=== PATIENT | male | born 1965 | race Caucasian/White ===

== ENCOUNTER 2017-04-17 18:41 | Inpatient (IN) | payer OTHER ==
[~2017-04-17] VITALS: Ht 177.8 cm; Wt 100.0 kg
[~2017-04-17 18:41] MED LIST: ASPI81TA82 PO; LORA-392 PO; MAGN400T PO; Z.0.NO CURRENT MEDS
[2017-04-17 19:26] VITALS: BP 132/82; PULSE 143; RESP 24; TEMP 100.5; O2SAT 96
[2017-04-17 20:36] LABS: AUTOMATED NEUTROPHIL # 4.5 TH/MM3 (1.8-7.7); BASOPHIL % 0.3 % (0.0-2.0); EOSINOPHIL % 0.1 % (0.0-4.0); HEMATOCRIT 47.4 % (39.0-51.0); HEMOGLOBIN 16.7 GM/DL (13.0-17.0); LYMPH % 10.4 % (9.0-44.0); LYMPHOCYTE # 0.7 TH/MM3 (1.0-4.8); MEAN CORPUSCULAR HEMOGLOBIN 30.6 PG (27.0-34.0); MEAN CORPUSCULAR HGB CONC 35.2 % (32.0-36.0); MEAN PLATELET VOLUME 7.7 FL (7.0-11.0); MONO % 18.9 % (0.0-8.0); MONOCYTE # 1.2 TH/MM3 (0-0.9); NEUT % 70.3 % (16.0-70.0); PLATELET COUNT 266 TH/MM3 (150-450); RED BLOOD COUNT 5.45 MIL/MM3 (4.50-5.90); RED CELL DISTRIBUTION WIDTH 13.7 % (11.6-17.2); WHITE BLOOD COUNT 6.3 TH/MM3 (4.0-11.0)
--- NOTE | 2017-04-17 20:41 | RADRPT ---
EXAM DATE/TIME: 04/17/2017 19:48 [facility] COMPARISON: No previous studies available for comparison. INDICATIONS : Short of breath. MEDICAL HISTORY : None. SURGICAL HISTORY : None. ENCOUNTER: Initial ACUITY: 1 day PAIN SCORE: 0/10 LOCATION: Bilateral chest FINDINGS: PA and lateral view of the chest demonstrates a linear opacity in the anterior right midlung suggesti ng either atelectasis or a discoid infiltrate. There is also some patchy infiltrate seen in the post erior left lower lung. Both hemidiaphragms are well delineated heart is normal size. The central br onchopulmonary markings level. CONCLUSION: Focal infiltrates in the anterior right midlung and posterior left lower lung. Panfilo Diaz MD on April 17, 2017 at 20:39 Board Certified Radiologist. This report was verified electronically.
[2017-04-17 20:54] LABS: INTERNATIONAL NORMALIZED RATIO 1.2 RATIO; PROTHROMBIN TIME - PATIENT 11.8 SEC (9.8-11.6)
[2017-04-17 21:09] LABS: ALBUMIN 3.8 GM/DL (3.4-5.0); AST (GOT) 26 U/L (15-37); BICARBONATE 27.6 MEQ/L (21.0-32.0); BLOOD UREA NITROGEN 16 MG/DL (7-18); CHLORIDE 99 MEQ/L (98-107); CREATININE 1.64 MG/DL (0.60-1.30); GLOMERULAR FILTRATION RATE 45 ML/MIN (>89); GLUCOSE,RANDOM 122 MG/DL (74-106); SODIUM (NA) 135 MEQ/L (136-145)
[2017-04-17 21:10] LABS: ALT (GPT) 28 U/L (12-78)
[2017-04-17 21:14] LABS: ALKALINE PHOSPHATASE 73 U/L (45-117); TOTAL BILIRUBIN ADULT 0.7 MG/DL (0.2-1.0); TOTAL PROTEIN 8.6 GM/DL (6.4-8.2); TROPONIN I LESS THAN 0.02 NG/ML (0.02-0.05)
[2017-04-17 21:40] LABS: BACTERIA, URINE FEW /hpf; BILIRUBIN, URINE NEG (NEG); BLOOD, URINE LARGE (NEG); GLUCOSE,URINE NEG (NEG); KETONE, URINE NEG (NEG); MUCUS URINE MANY /lpf (OCC); NITRITE,URINE NEG (NEG); URINE LEUKOCYTE ESTERASE NEG (NEG)
[2017-04-17 21:47] LABS: URINE COLOR RED (YELLW/STRAW)
[2017-04-17] MEDS ORDERED: AZITHROMYCIN INJ 500 MG in SODIUM CHLOR 0.9% 250 ML INJ 250 ML IV ONE (23:30)
[2017-04-17] MEDS ORDERED: cefTRIAXone INJ 1,000 MG in SODIUM CHLORIDE 0.9% INJ 100 ML IV ONE (23:30)
[2017-04-17] MEDS ORDERED: OSELTAMIVIR PHOSPHATE 75 MG CAP PO ONE (23:30)
[2017-04-17] MEDS ORDERED: SODIUM CHLOR 0.9% 1000 ML INJ 1,000 ML IV ONE (23:30)
[2017-04-17 23:34] VITALS: BP 123/80; PULSE 120; RESP 18; TEMP 99.3; O2SAT 99
--- NOTE | 2017-04-17 23:45 | PD ---
HPI Chief Complaint: Cold / Flu Symptoms Time Seen by Provider: 23:22 Travel History International Travel<30 days: No Contact w/Intl Traveler<30days: No Traveled to known affect area: No History of Present Illness HPI 52-year-old male with no significant past medical history of for evaluation of fever, chills, cough, flulike symptoms. Symptoms have been going on for last 2 days and seems to be worse today. He is complaining of generalized weakness and generalized malaise as well. No vomiting or diarrhea. No abdominal pain. Workup was performed in triage and the patient is positive for influenza A with bilateral pulmonary infiltrates. PFSH Past Medical History Atrial Fibrillation: Yes Kidney Stones: Yes Immunizations Current: No Past Surgical History Abdominal Surgery: Yes (MARY., ) Cardiac Surgery: Yes (ABLATION 2011) Cholecystectomy: Yes Genitourinary Surgery: Yes ([facility]) Other Surgery: Yes Social History Alcohol Use: No Tobacco Use: No Substance Use: No Allergies-Medications (Allergen,Severity, Reaction): Coded Allergies: No Known Allergies (Verified Adverse Reaction, Unknown, 04/17/17) Reported Meds & Prescriptions Reported Meds & Active Scripts Active No Active Prescriptions or Reported Medications Review of Systems Except as stated in HPI: all other systems reviewed are Neg Physical Exam Narrative GENERAL: Pleasant, well-developed, well-nourished, no apparent distress. SKIN: Focused skin assessment warm/dry. No rash. HEAD: Atraumatic. Normocephalic. EYES: Pupils equal and round. No scleral icterus. No injection or drainage. ENT: Mucous membranes pink and dry. NECK: Trachea midline. No JVD. No nuchal rigidity. CARDIOVASCULAR: Regular rate and rhythm. No murmur appreciated. RESPIRATORY: No accessory muscle use. Clear to auscultation. Breath sounds equal bilaterally. GASTROINTESTINAL: Abdomen soft, non-tender, nondistended. MUSCULOSKELETAL: No obvious deformities. No clubbing. No cyanosis. No edema. NEUROLOGICAL: Awake and alert. No obvious cranial nerve deficits. Motor grossly within normal limits. Normal speech. PSYCHIATRIC: Appropriate mood and affect; insight and judgment normal. Data Data Last Documented VS Vital Signs Date Time Temp Pulse Resp B/P (MAP) Pulse Ox O2 Delivery O2 Flow Rate FiO2 04/17/17 23:34 99.3 120 18 123/80 (94) 99 Room Air Orders Orders Electrocardiogram (04/17/17:) Complete Blood Count With Diff (04/17/17 19:28) Comprehensive Metabolic Panel (04/17/17:) Prothrombin Time / Inr (Pt) (04/17/17:) Act Partial Throm Time (Ptt) (04/17/17:) Lactic Acid Sepsis Protocol (04/17/17 19:28) Lipase (04/17/17 19:28) Ckmb (Isoenzyme) Profile (04/17/17:) Troponin I (04/17/17:) Urinalysis - C+S If Indicated (04/17/17:) Influenzae A/B Antigen (04/17/17:) Blood Culture (04/17/17:) Chest, Pa & Lat (04/17/17 19:28) CKMB (04/17/17 20:10) CKMB% (04/17/17 20:10) Urine Culture (04/17/17 20:19) Oseltamivir (Tamiflu) (04/17/17 23:30) Ceftriaxone Inj (Rocephin Inj) (04/17/17 23:30) Azithromycin Inj (Zithromax Inj) (04/17/17 23:30) Sodium Chlor 0.9% 1000 Ml Inj (Ns 1000 M (04/17/17 23:30) Labs Laboratory Tests Test 04/17/17 20:10 04/17/17 20:19 White Blood Count 6.3 TH/MM3 Red Blood Count 5.45 MIL/MM3 Hemoglobin 16.7 GM/DL Hematocrit 47.4 % Mean Corpuscular Volume 87.0 FL Mean Corpuscular Hemoglobin 30.6 PG Mean Corpuscular Hemoglobin Concent 35.2 % Red Cell Distribution Width 13.7 % Platelet Count 266 TH/MM3 Mean Platelet Volume 7.7 FL Neutrophils (%) (Auto) 70.3 % Lymphocytes (%) (Auto) 10.4 % Monocytes (%) (Auto) 18.9 % Eosinophils (%) (Auto) 0.1 % Basophils (%) (Auto) 0.3 % Neutrophils # (Auto) 4.5 TH/MM3 Lymphocytes # (Auto) 0.7 TH/MM3 Monocytes # (Auto) 1.2 TH/MM3 Eosinophils # (Auto) 0.0 TH/MM3 Basophils # (Auto) 0.0 TH/MM3 CBC Comment DIFF FINAL Differential Comment Prothrombin Time 11.8 SEC Prothromb Time International Ratio 1.2 RATIO Activated Partial Thromboplast Time 30.1 SEC Blood Urea Nitrogen 16 MG/DL Creatinine 1.64 MG/DL Random Glucose 122 MG/DL Total Protein 8.6 GM/DL Albumin 3.8 GM/DL Calcium Level 9.0 MG/DL Alkaline Phosphatase 73 U/L Aspartate Amino Transf (AST/SGOT) 26 U/L Alanine Aminotransferase (ALT/SGPT) 28 U/L Total Bilirubin 0.7 MG/DL Sodium Level 135 MEQ/L Potassium Level 3.9 MEQ/L Chloride Level 99 MEQ/L Carbon Dioxide Level 27.6 MEQ/L Anion Gap 8 MEQ/L Estimat Glomerular Filtration Rate 45 ML/MIN Lactic Acid Level 1.3 mmol/L Total Creatine Kinase 119 U/L Creatine Kinase MB LESS THAN 0.5 NG/ML Troponin I LESS THAN 0.02 NG/ML Lipase 84 U/L Urine Color RED Urine Turbidity CLOUDY Urine pH 6.0 Urine Specific [place] 1.023 Urine Protein 100 mg/dL Urine Glucose (UA) NEG mg/dL Urine Ketones NEG mg/dL Urine Occult Blood LARGE Urine Nitrite NEG Urine Bilirubin NEG Urine Urobilinogen LESS THAN 2.0 MG/DL Urine Leukocyte Esterase NEG Urine RBC 13 /hpf Urine WBC 9 /hpf Urine Bacteria FEW /hpf Urine Mucus MANY /lpf Microscopic Urinalysis Comment CULTURE INDICATED MDM Medical Decision Making Medical Screen Exam Complete: Yes Emergency Medical Condition: Yes Differential Diagnosis Sepsis, pneumonia, influenza Narrative Course Initial vital signs show heart rate 143, blood pressure 132/82, pulse ox 96% on room air, oral temp of 100.5F. CBC: WBC 6.3, hemoglobin 16.7, hematocrit 47.4, platelets 266, neutrophils 70%. CMP is remarkable for creatinine 1.64, GFR 45, otherwise unremarkable. Lactic acid is 1.3. UA is suggestive of UTI. Influenza is positive. Chest x-ray shows bilateral infiltrates. The patient is not in any distress, however he does have flu a and pneumonia. He will be admitted for further treatment and evaluation. He was started on Tamiflu, Rocephin, and azithromycin. He was also given 2 L of normal saline IV for sepsis. Case discussed with hospitalist Dr. Ludwig who will admit the patient to her service. Diagnosis Primary Impression: Sepsis Qualified Codes: A41.9 - Sepsis, unspecified organism Additional Impressions: Influenza A Pneumonia Qualified Codes: J18.9 - Pneumonia, unspecified organism Admitting Information Admitting Physician Requests: Admit Scripts No Active Prescriptions or Reported Jason Berry MD Apr 17, 2017 23:45
[2017-04-18] VITALS (8 sets, daily range): BP systolic 108–142; BP diastolic 62–89; PULSE 99–106; RESP 14–20; TEMP 98.5–99.1; O2SAT 92–99
[2017-04-18] MEDS ORDERED: ACETAMINOPHEN 325 MG TAB PO ONE
[2017-04-18] MEDS ORDERED: SODIUM CHLOR 0.9% 1000 ML INJ 1,000 ML IV ONE
[2017-04-18] MEDS ORDERED: guaiFENesin/DEXTROMETHORPHAN 200 MG/20 MG/10 ML CUP PO PRN (00:45)
[2017-04-18] MEDS ORDERED: ONDANSETRON HCL 4 MG/2 ML VIAL IV PUSH PRN (00:45)
[2017-04-18] MEDS ORDERED: SODIUM CHLORIDE 0.9% FLUSH 10 ML FLUSH IV FLUSH PRN (00:45)
[2017-04-18] MEDS ORDERED: ACETAMINOPHEN 325 MG TAB PO PRN (00:45)
[2017-04-18] MEDS ORDERED: RESP: ALBUTEROL 2.5 MG/IPRATROPIUM 0.5 MG NEB (PRN) INH (00:45)
[2017-04-18] MEDS: SODIUM CHLOR 0.9% 1000 ML INJ 1,000 ML IV SCH ×3 (01:35→22:34)
[2017-04-18] MEDS: HEPARIN SODIUM - SQ 10,000 UNITS/ML VIAL SQ SCH ×3 (02:00→18:00)
[2017-04-18] MEDS: RESP: ALBUTEROL 2.5 MG/IPRATROPIUM 0.5 MG NEB (SCH) INH ×4 (03:34→21:00)
--- NOTE | 2017-04-18 03:40 | HHI.HP ---
HPI Service [facility] Primary Care Physician [facility] Admission Diagnosis sepsis, influenza, pneumonia Diagnoses: Travel History International Travel<30 Days: No Contact w/Intl Traveler <30 Da: No Traveled to Known Affected Are: No History of Present Illness 52-year-old male with no significant past medical history presents to the emergency department for the evaluation of fever and body aches. The patient reports that for the past 2-3 days he has had subjective fever/chills and corresponding body aches with weakness. He endorses accompanying nausea and shortness of breath. He has a nonproductive cough. He states he usually " rides these things out" however was feeling so weak today that he presented in the emergency department for further evaluation. He denies chest pain or shortness of breath. No vomiting or diarrhea. Review of Systems Except as stated in HPI: all other systems reviewed are Neg Past Family Social History Past Medical History History of renal calculi Past Surgical History Ablation for atrial fibrillation Cholecystectomy Lithotripsy Reported Medications Reported Meds & Active Scripts Active No Active Prescriptions or Reported Medications Allergies: Coded Allergies: No Known Allergies (Verified Allergy, Unknown, 04/18/17) Family History Father with CAD Social History Denies alcohol, tobacco and illicit drugs Physical Exam Vital Signs Vital Signs Date Time Temp Pulse Resp B/P (MAP) Pulse Ox O2 Delivery O2 Flow Rate FiO2 04/18/17 02:31 106 18 108/62 (77) 96 Room Air 04/17/17 23:34 99.3 120 18 123/80 (94) 99 Room Air 04/17/17 19:26 100.5 143 24 132/82 (99) 96 Physical Exam GENERAL: male lying in bed SKIN: No rashes, ecchymoses or lesions. Cool and dry. HEAD: Atraumatic. Normocephalic. No temporal or scalp tenderness. EYES: Pupils equal round and reactive. Extraocular motions intact. No scleral icterus. No injection or drainage. ENT: Nose without bleeding, purulent drainage or septal hematoma. Throat without erythema, tonsillar hypertrophy or exudate. Uvula midline. Airway patent. NECK: Trachea midline. No JVD or lymphadenopathy. Supple, nontender, no meningeal signs. CARDIOVASCULAR: Regular rate and rhythm without murmurs, gallops, or rubs. RESPIRATORY: Clear to auscultation. Breath sounds equal bilaterally. No wheezes , rales, or rhonchi. GASTROINTESTINAL: Abdomen soft, non-tender, nondistended. No hepato-splenomegaly , or palpable masses. No guarding. MUSCULOSKELETAL: Extremities without clubbing, cyanosis, or edema. No joint tenderness, effusion, or edema noted. No calf tenderness. NEUROLOGICAL: Awake and alert. Cranial nerves II through XII intact. Motor and sensory grossly within normal limits. Normal speech. Laboratory Laboratory Tests Test 04/17/17 20:10 04/17/17 20:19 White Blood Count 6.3 Red Blood Count 5.45 Hemoglobin 16.7 Hematocrit 47.4 Mean Corpuscular Volume 87.0 Mean Corpuscular Hemoglobin 30.6 Mean Corpuscular Hemoglobin Concent 35.2 Red Cell Distribution Width 13.7 Platelet Count 266 Mean Platelet Volume 7.7 Neutrophils (%) (Auto) 70.3 Lymphocytes (%) (Auto) 10.4 Monocytes (%) (Auto) 18.9 Eosinophils (%) (Auto) 0.1 Basophils (%) (Auto) 0.3 Neutrophils # (Auto) 4.5 Lymphocytes # (Auto) 0.7 Monocytes # (Auto) 1.2 Eosinophils # (Auto) 0.0 Basophils # (Auto) 0.0 CBC Comment DIFF FINAL Differential Comment Prothrombin Time 11.8 Prothromb Time International Ratio 1.2 Activated Partial Thromboplast Time 30.1 Blood Urea Nitrogen 16 Creatinine 1.64 Random Glucose 122 Total Protein 8.6 Albumin 3.8 Calcium Level 9.0 Alkaline Phosphatase 73 Aspartate Amino Transf (AST/SGOT) 26 Alanine Aminotransferase (ALT/SGPT) 28 Total Bilirubin 0.7 Sodium Level 135 Potassium Level 3.9 Chloride Level 99 Carbon Dioxide Level 27.6 Anion Gap 8 Estimat Glomerular Filtration Rate 45 Lactic Acid Level 1.3 Total Creatine Kinase 119 Creatine Kinase MB LESS THAN 0.5 Troponin I LESS THAN 0.02 Lipase 84 Urine Color RED Urine Turbidity CLOUDY Urine pH 6.0 Urine Specific [place] 1.023 Urine Protein 100 Urine Glucose (UA) NEG Urine Ketones NEG Urine Occult Blood LARGE Urine Nitrite NEG Urine Bilirubin NEG Urine Urobilinogen LESS THAN 2.0 Urine Leukocyte Esterase NEG Urine RBC 13 Urine WBC 9 Urine Bacteria FEW Urine Mucus MANY Microscopic Urinalysis Comment CULTURE INDICATED Date/Time Source Procedure Growth Status 04/17/17 20:10 Blood Peripheral Aerobic Blood Culture Pending Received 04/17/17 20:10 Blood Peripheral Anaerobic Blood Culture Pending Received 04/17/17 20:10 Nasal Washing Influenza Types A,B Antigen (SARAH BETH) - Final Positive For Flu A Antigen Complete 04/17/17 20:19 Urine Clean Catch Urine Culture Pending Received Result Diagram: 04/17/17200904/17/172009 Caprini VTE Risk Assessment Caprini VTE Risk Assessment: No/Low Risk (score <= 1) Caprini Risk Assessment Model Point Value = 1 Point Value = 2 Point Value = 3 Point Value = 5 Age 41-60 Minor surgery BMI > 25 kg/m2 Swollen legs Varicose veins or History of unexplained or recurrent spontaneous Oral contraceptives or hormone replacement Sepsis (< 1 month) Serious lung disease, including pneumonia (< 1 month) Abnormal pulmonary function Acute myocardial infarction Congestive heart failure (< 1 month) History of inflammatory bowel disease Medical patient at bed rest Age 61-74 Arthroscopic surgery Major open surgery (> 45 min) Laparoscopic surgery (> 45 min) Malignancy Confined to bed (> 72 hours) Immobilizing plaster cast Central venous access Age >= 75 History of VTE Family history of VTE Factor V Leiden Prothrombin [id number] Lupus anticoagulant Anticardiolipin antibodies Elevated serum homocysteine Heparin-induced thrombocytopenia Other congenital or acquired thrombophilia Stroke (< 1 month) Elective arthroplasty Hip, pelvis, or leg fracture Acute spinal cord injury (< 1 month) Prophylaxis Regimen Total Risk Factor Score Risk Level Prophylaxis Regimen 0-1 Low Early ambulation 2 Moderate Order ONE of the following: *Sequential Compression Device (SCD) *Heparin 5000 units SQ BID 3-4 Higher Order ONE of the following medications: *Heparin 5000 units SQ TID *Enoxaparin/Lovenox 40 mg SQ daily (WT < 150 kg, CrCl > 30 mL/min) *Enoxaparin/Lovenox 30 mg SQ daily (WT < 150 kg, CrCl > 10-29 mL/min) *Enoxaparin/Lovenox 30 mg SQ BID (WT < 150 kg, CrCl > 30 mL/min) AND/OR *Sequential Compression Device (SCD) 5 or more Highest Order ONE of the following medications: *Heparin 5000 units SQ TID (Preferred with Epidurals) *Enoxaparin/Lovenox 40 mg SQ daily (WT < 150 kg, CrCl > 30 mL/min) *Enoxaparin/Lovenox 30 mg SQ daily (WT < 150 kg, CrCl > 10-29 mL/min) *Enoxaparin/Lovenox 30 mg SQ BID (WT < 150 kg, CrCl > 30 mL/min) AND *Sequential Compression Device (SCD) Assessment and Plan Assessment and Plan Assessment/plan: 1. Pneumonia/sepsis Patient tachycardic with fever Chest x-ray significant for bilateral infiltrates, personally reviewed Azithromycin/Rocephin Monitor for signs of shock 2. Influenza Patient positive for influenza A Tamiflu 3. KAVITA Creatinine elevated at 1.64, no recent baseline for comparison IV fluid hydration Monitor renal function UA with large occult blood Patient with history of kidney stones CT of the abdomen/pelvis pending FEN Heart healthy diet Electrolytes: Replete when necessary Ambulation Physician Certification 2 Midnight Certification Type: Admission for Inpatient Services Order for Inpatient Services The services are ordered in accordance with Medicare regulations or non- Medicare payer requirements, as applicable. In the case of services not specified as inpatient-only, they are appropriately provided as inpatient services in accordance with the 2-midnight benchmark. Estimated LOS (days): 2 2 days is the estimated time the patient will need to remain in the hospital, assuming treatment plan goals are met and no additional complications. Post-Hospital Plan: Not yet determined Gientte Ludwig MD Apr 18, 2017 03:40
--- NOTE | 2017-04-18 05:12 | RADRPT ---
EXAM DATE/TIME: 04/18/2017 04:13 [facility] COMPARISON: No previous studies available for comparison. INDICATIONS : Bilateral flank pain. ORAL CONTRAST: No oral contrast ingested. RADIATION DOSE: 26.17 CTDIvol (mGy) MEDICAL HISTORY : Renal calculi. SURGICAL HISTORY : Cholecystectomy. ENCOUNTER: Initial ACUITY: 1 day PAIN SCALE: 5/10 LOCATION: Bilateral flank TECHNIQUE: Volumetric scanning of the abdomen and pelvis was performed. Using automated exposure control and ad justment of the mA and/or kV according to patient size, radiation dose was kept as low as reasonably achievable to obtain optimal diagnostic quality images. DICOM format image data is available electro nically for review and comparison. FINDINGS: LOWER LUNGS: The visualized lower lungs are clear. LIVER: Homogeneous density without lesion. There is no dilation of the biliary tree. There has been prior cholecystectomy clips in the gallbladder fossa and a clip adjacent to the right lobe of the liver. SPLEEN: Normal size without lesion. PANCREAS: Within normal limits. KIDNEYS: Normal in size and shape. There is no stone or hydronephrosis. There is an exophytic isodense lesion at the right upper pole kidney measuring 12 mm. Hounsfield measurements are 38. There is a 9 mm low- density lesion in the right mid kidney and a 2.6 cm low-density lesion at the left lower pole kidney. He said density measurements consistent with simple cysts. ADRENAL GLANDS: Within normal limits. VASCULAR: There is no aortic aneurysm. BOWEL/MESENTERY: The stomach, small bowel, and colon demonstrate no acute abnormality. There is no free intraperitone al air or fluid. ABDOMINAL WALL: Within normal limits. RETROPERITONEUM: There is no lymphadenopathy. BLADDER: No wall thickening or mass. REPRODUCTIVE: Within normal limits. INGUINAL: There is no lymphadenopathy or hernia. MUSCULOSKELETAL: There are mild degenerative changes of the lumbar spine with pars defects of L5. CONCLUSION: 1. No acute finding is identified to explain the bilateral flank pain. No renal stones or signs of ur inary obstruction are present. 2. There is an 12 mm indeterminate lesion at the upper pole of the right kidney medially. This could represent a complex cyst or a solid mass. If no prior imaging studies are available for further evalu ation suggest further characterization with renal protocol CT or MRI with and without intravenous con trast. Sandro Jovel MD on April 18, 2017 at 5:05 Board Certified Radiologist. This report was verified electronically.
[2017-04-18] MEDS ORDERED: OSELTAMIVIR PHOSPHATE 75 MG CAP PO SCH (09:00)
[2017-04-18] MEDS: OSELTAMIVIR PHOSPHATE 75 MG CAP PO SCH ×2 (09:35→22:33)
[2017-04-18] MEDS: SODIUM CHLORIDE 0.9% FLUSH 10 ML FLUSH IV FLUSH SCH ×2 (09:35→21:00)
--- NOTE | 2017-04-18 13:47 | EKG ---
Date Performed: 04/17/2017 Time Performed: 20:09:06 PTAGE: 52 years EKG: SINUS TACHYCARDIA PREVIOUS TRACING : 05/25/2012 06.44 DOCTOR: Moises Fernández Interpretating Date/Time 04/18/2017 13:46:29
[2017-04-19] VITALS: BP 126/79; PULSE 97; RESP 17; TEMP 98.8; O2SAT 95
[2017-04-19] MEDS ORDERED: cefTRIAXone INJ 1,000 MG in SODIUM CHLORIDE 0.9% INJ 100 ML IV SCH ×2
[2017-04-19] MEDS ORDERED: AZITHROMYCIN INJ 500 MG in SODIUM CHLOR 0.9% 250 ML INJ 250 ML IV SCH (01:00)
[2017-04-19] MEDS: HEPARIN SODIUM - SQ 10,000 UNITS/ML VIAL SQ SCH ×2 (01:19→10:00)
[2017-04-19] MEDS: RESP: ALBUTEROL 2.5 MG/IPRATROPIUM 0.5 MG NEB (SCH) INH ×2 (03:42→08:28)
[2017-04-19 04:00] VITALS: BP 137/66; PULSE 87; RESP 20; TEMP 98; O2SAT 96
[2017-04-19 05:55] LABS: AUTOMATED NEUTROPHIL # 2.3 TH/MM3 (1.8-7.7); BASOPHIL % 0.5 % (0.0-2.0); EOSINOPHIL # 0.1 TH/MM3 (0-0.4); EOSINOPHIL % 1.5 % (0.0-4.0); HEMATOCRIT 42.9 % (39.0-51.0); HEMOGLOBIN 14.7 GM/DL (13.0-17.0); LYMPH % 34.1 % (9.0-44.0); LYMPHOCYTE # 1.7 TH/MM3 (1.0-4.8); MEAN CELL VOLUME 87.1 FL (80.0-100.0); MEAN CORPUSCULAR HEMOGLOBIN 29.9 PG (27.0-34.0); MEAN CORPUSCULAR HGB CONC 34.3 % (32.0-36.0); MEAN PLATELET VOLUME 7.7 FL (7.0-11.0); MONO % 17.3 % (0.0-8.0); MONOCYTE # 0.9 TH/MM3 (0-0.9); NEUT % 46.6 % (16.0-70.0); PLATELET COUNT 210 TH/MM3 (150-450); RED BLOOD COUNT 4.92 MIL/MM3 (4.50-5.90); RED CELL DISTRIBUTION WIDTH 13.6 % (11.6-17.2); WHITE BLOOD COUNT 4.9 TH/MM3 (4.0-11.0)
[2017-04-19 06:18] LABS: BICARBONATE 24.7 MEQ/L (21.0-32.0); CALCIUM 7.9 MG/DL (8.5-10.1); CREATININE 1.19 MG/DL (0.60-1.30)
[2017-04-19 08:00] VITALS: BP 157/93; PULSE 90; RESP 16; TEMP 97.9; O2SAT 95
[2017-04-19] MEDS: OSELTAMIVIR PHOSPHATE 75 MG CAP PO SCH (10:36)
[2017-04-19] MEDS: SODIUM CHLORIDE 0.9% FLUSH 10 ML FLUSH IV FLUSH SCH (10:38)
[2017-04-19 12:00] VITALS: BP 97/119; PULSE 79; RESP 17; TEMP 98.3; O2SAT 17
[2017-04-19] MEDS ORDERED: LEVA750T9 PO (16:08)
[2017-04-19] MEDS ORDERED: OSEL75 PO (16:11)
--- NOTE | 2017-04-19 16:16 | HHI.PR ---
Subjective Remarks Pt feels a lot better and feels ready to go home. still has a cough but it is much less. no fevers or chills. no nausea or vomiting. tolerating a diet Objective Vitals Vital Signs Date Time Temp Pulse Resp B/P (MAP) Pulse Ox O2 Delivery O2 Flow Rate FiO2 04/19/17 12:00 98.3 79 17 97/119 (112) 17 04/19/17 08:00 97.9 90 16 157/93 (114) 95 04/19/17 08:00 96 Room Air 21 04/19/17 04:00 Room Air 04/19/17 04:00 98.0 87 20 137/66 (89) 96 04/19/17 00:00 98.8 97 17 126/79 (95) 95 04/19/17 00:00 Room Air 04/18/17 21:00 96 21 04/18/17 21:00 Room Air 04/18/17 20:00 98.5 100 19 138/78 (98) 94 I/O 04/18/17 04/18/17 04/18/17 04/19/17 04/19/17 04/19/17 07:00 15:00 23:00 07:00 15:00 23:00 Intake Total 2350 ml 1000 ml 1000 ml 1169 ml Output Total 875 ml Balance 2350 ml 1000 ml 1000 ml 294 ml Intake IV Total 2350 ml 1000 ml 1000 ml 1169 ml Output Urine Total 875 ml Result Diagram: 04/19/17 0512 04/19/17 0512 Imaging Last Impressions Abdomen/Pelvis CT 04/18/17 0000 Signed Impressions: Service Date/Time: Tuesday, April 18, 2017 04:13 - CONCLUSION: 1. No acute finding is identified to explain the bilateral flank pain. No renal stones or signs of urinary obstruction are present. 2. There is an 12 mm indeterminate lesion at the upper pole of the right kidney medially. This could represent a complex cyst or a solid mass. If no prior imaging studies are available for further evaluation suggest further characterization with renal protocol CT or MRI with and without intravenous contrast. Sandro Jovel MD Chest X-Ray 04/17/171927 Signed Impressions: Service Date/Time: Monday, April 17, 2017 19:48 - CONCLUSION: Focal infiltrates in the anterior right midlung and posterior left lower lung. Panfilo Diaz MD Objective Remarks GENERAL: male lying in bed NECK: Trachea midline. CARDIOVASCULAR: Regular rate and rhythm without murmurs RESPIRATORY: Clear to auscultation. Breath sounds equal bilaterally. No wheezes GASTROINTESTINAL: Abdomen soft, non-tender, nondistended. No guarding. MUSCULOSKELETAL: Extremities without edema. NEUROLOGICAL: Awake and alert. Motor and sensory grossly within normal limits. Normal speech. A/P Assessment and Plan 1. Pneumonia/sepsis/flu+ Patient tachycardic with fever Chest x-ray significant for bilateral infiltrates, personally reviewed received Azithromycin/Rocephin. will transition to po levaquin as an outpatient script for tamiflu also given as Patient positive for influenza A 2. KAVITA- resolved.s/p IVFs urine cx and blood cx neg x 2 days Patient with history of kidney stones CT of the abdomen/pelvis 1.2cm lesion on upper pole of right kidney. could be cyst vs mass. Pt to f/u w PCP Discharge Planning ok to d/c today condition stable heart healthy diet scripts in chart activity Mariana Patricia MD Apr 19, 2017 16:16
== END 2017-04-19 18:01 | disposition home or self-care (01) | DRG 871 ==
LOC: NEPD 18:41 → NEDA 23:53 → NEDH 04-18 03:53 → N04B 04-18 15:44
PROVIDERS: ADMIT Hospitalist; ATTEND Hospitalist
DX: A41.9 Sepsis, unspecified organism (principal); J10.00 Influenza due to other identified influenza virus with unspecified type of pneumonia; N17.9 Acute kidney failure, unspecified; Z87.442 Personal history of urinary calculi
CPT/HCPCS: 71046; 74176; 80048; 80053; 81001; 82550; 82552; 83605; 83690; 84484; 85025; 85610; 85730; 87040; 87086; 87804; 93005; 94664; 96374; J0456; J0696; J7030; J7050

== ENCOUNTER 2018-02-20 09:43 | Inpatient (IN) ==
[2018-02-20] MEDS ORDERED: Sod Chloride 0.9% Inj 1,000 ML IV.SIG ONE (09:56)
--- NOTE | 2018-02-20 10:02 | ED ---
HPI General Chief Complaint: Syncope Stated Complaint: cardiac complaint Time Seen by Provider: 02/20/18 09:47 Source: patient Limitations: no limitations History of Present Illness HPI narrative: Patient is a 52-year-old male who presents with complaint of syncope. He states that this morning he started to have profuse, watery diarrhea and was sitting on the toilet when he suddenly lost consciousness. He did hit the top of his head. He does not know how long he was out for. He admits to lightheadedness but denies chest pain or shortness of breath. He is not sure if he has abdominal pain other than cramping. No vomiting. He had an appendectomy approximately 1 month ago. He does have a history of a cardiac ablation for a "fast heart rate." complaint: Reports loss of consciousness Onset (ago): hour(s) Prodromal symptoms: Reports lightheaded Witnessed: no Context: Reports other Injuries sustained associated with event: Reports head Current symptoms: Reports back to baseline Treatments prior to arrival: Reports none Related Data Home Medications Medication Instructions Recorded Confirmed No Known Home Medications 02/20/18 02/20/18 Allergies Allergy/AdvReac Type Severity Reaction Status Date / Time No Known Allergies Allergy Verified 02/20/18 11:52 Review of Systems ROS: all other systems reviewed are negative [facility] Medical History Medical History HTN (hypertension) (Acute) Tachycardia (Acute) Surgical History Surgical History History of appendectomy (Acute) History of cardiac radiofrequency ablation (Acute) History of cholecystectomy (Acute) Social History Social History Substance History: No History of Abuse Smoking Status: Never smoker How Often Do You Have a Drink Containing Alcohol: Never Recent Travel in [facility] within the Last 8 Weeks: No Recent Out of Country Travel within the Last 8 Weeks: No Immunization History Tetanus Immunization: Unsure Exam Narrative Exam Narrative: GENERAL: Pale male in no acute distress SKIN: Focused skin assessment warm/dry. HEAD: Atraumatic. Normocephalic. EYES: Pupils equal and round. No scleral icterus. No injection or drainage. ENT: No nasal bleeding or discharge. Mucous membranes pink and dry. NECK: Trachea midline. No JVD. CARDIOVASCULAR: Tachycardic but regular. No murmur appreciated. Intact and equal peripheral pulses. RESPIRATORY: No accessory muscle use. Clear to auscultation. Breath sounds equal bilaterally. GASTROINTESTINAL: Abdomen soft, non-tender, nondistended. Hepatic and splenic margins not palpable. MUSCULOSKELETAL: No obvious deformities. No clubbing. No cyanosis. No edema. NEUROLOGICAL: Awake and alert. No obvious cranial nerve deficits. Motor grossly within normal limits. Normal speech. PSYCHIATRIC: Appropriate mood and affect; insight and judgment normal. Course Reevaluation(s) Reevaluation #1: HR is improving and is now in the 110s from the 120s-130s previously. Time: 11:14 Initial Documented Vital Signs Pulse Rate 128 H 02/20/18 09:53 Respiratory Rate 20 02/20/18 09:53 Blood Pressure 156/97 H 02/20/18 09:53 Pulse Oximetry 98 02/20/18 09:53 Last Documented Vital Signs Pulse Rate 106 H 02/20/18 11:00 Respiratory Rate 19 02/20/18 11:00 Blood Pressure 141/96 H 02/20/18 11:00 Pulse Oximetry 96 02/20/18 11:00 Medical Decision Making MDM Narrative Medical decision making narrative: Patient is a 52-year-old male who presents with diarrhea that began today. On arrival he was tachycardic and pale- appearing. Labs revealed a leukocytosis and he remained tachycardic after fluids were given. Labs were otherwise unremarkable and CT did not reveal an acute abnormality. He is not had other bowel movements here to test for C. difficile. Given his leukocytosis and tachycardia he has been treated empirically with Zosyn for presumed sepsis. I spoke with Dr. Garza, hospitalist switchboard and control room operator, regarding this admission who agreed. Medical Screen Exam Complete: Yes Emergency Medical Condition: Yes Differential Diagnosis Differential Diagnosis: Differential diagnosis includes but is not limited to dehydration, acute kidney injury, dysrhythmia, colitis. Medical Records Medical records reviewed: Yes I reviewed the patient's medical records. Lab Data Lab results reviewed: Yes I reviewed the patient's lab results. Result diagrams: 02/20/18 11:12 02/20/18 10:00 Lab Results 02/20/18 02/20/18 02/20/18 Range/Units 10:00 11:12 12:20 WBC 15.6 H (4.0-11.0) th/mm3 RBC 5.17 (4.50-5.90) mil/mm3 Hgb 15.7 (13.0-17.0) gm/dL Hct 47.4 (39.0-51.0) % MCV 91.5 (80.0-100.0) fL MCH 30.4 (27.0-34.0) pg MCHC 33.2 (32.0-36.0) % RDW 13.4 (11.6-17.2) % Plt Count 243 (150-450) th/mm3 MPV 7.8 (7.0-11.0) fL Neut % (Auto) 89.4 H (16.0-70.0) % Lymph % (Auto) 5.4 L (9.0-44.0) % [place] % (Auto) 4.5 (0.0-8.0) % Eos % (Auto) 0.5 (0.0-4.0) % Baso % (Auto) 0.2 (0.0-2.0) % Neut # (Auto) 14.0 H (1.8-7.7) th/mm3 Lymph # (Auto) 0.8 L (1.0-4.8) th/mm3 [place] # (Auto) 0.7 (0.0-0.9) th/mm3 Eos # (Auto) 0.1 (0.0-0.4) th/mm3 Baso # (Auto) 0.0 (0.0-0.2) th/mm3 WBC Differential . Differential Comment Auto diff final Sodium 135 L (136-145) meq/L Potassium 4.6 (3.5-5.1) meq/L Chloride 104 (98-107) meq/L Carbon Dioxide 23.8 (21.0-32.0) meq/L Anion Gap 7 (5-15) meq/L BUN 13 (7-18) mg/dL Creatinine 1.25 (0.60-1.30) mg/dL Estimated GFR 61 L (>89) mL/min Random Glucose 116 H (74-106) mg/dL Lactic Acid 1.9 (0.4-2.0) mmol/L Calcium 9.4 (8.5-10.1) mg/dL Total Bilirubin 1.2 H (0.2-1.0) mg/dL AST 37 (15-37) U/L ALT 28 (12-78) U/L Alkaline Phosphatase 89 (45-117) U/L Troponin I Less than 0.02 L (0.02-0.05) ng/mL Total Protein 8.9 H (6.4-8.2) g/dL Albumin 4.1 (3.4-5.0) g/dL Lipase 92 (73-393) U/L Imaging Data Attestation: I personally reviewed and interpreted this imaging study as follows : Radiologist's impression: Abdomen/Pelvis CT 02/20/18 09:56 CONCLUSION: Chronic spondylolysis L5 bilaterally and there are simple cysts in the kidneys. Head CT 02/20/18 09:56 CONCLUSION: 1. Negative for acute process . Chest X-Ray 02/20/18 11:30 CONCLUSION: 1. No acute cardiopulmonary disease. ECG Data EKG Prior to Arrival: No Attestation: I personally reviewed and interpreted this ECG as follows: (Sinus tachycardia at a rate of [address] or T wave changes.) Discharge Plan Discharge Disposition Patient Disposition: ED Admit(ED Internal Use Only) Discharge Condition Condition: Stable Discharge Order Discharge Orders: ED Use Only Admit Order (Routine); Ordered 02/20/18 Ordered By: Jazmyne Aldridge Discharge Details Diagnosis: SIRS (systemic inflammatory response syndrome), Acute dehydration Physicians Team ED Provider: Jazmyne Aldridge Primary Care Provider: [facility],Physician 's Attending Provider: Camilo Garza Discharge Interventions Interventions: Vital Signs Last Done: 02/20/18 09:53 Status ED Status: Admitted Patient
[2018-02-20 10:46] LABS: Alanine Aminotransferase 28 U/L (12-78)
[2018-02-20 10:50] LABS: Alkaline Phosphatase 89 U/L (45-117); Total Protein 8.9 g/dL (6.4-8.2)
[2018-02-20 10:52] LABS: Albumin 4.1 g/dL (3.4-5.0); Anion Gap 7 meq/L (5-15); Aspartate Aminotransferase 37 U/L (15-37); Blood Urea Nitrogen 13 mg/dL (7-18); Calcium 9.4 mg/dL (8.5-10.1); Carbon Dioxide 23.8 meq/L (21.0-32.0); Chloride 104 meq/L (98-107); Glomerular Filtration Rate 61 mL/min (>89); Glucose,Random 116 mg/dL (74-106); Lipase 92 U/L (73-393); Potassium 4.6 meq/L (3.5-5.1); Sodium 135 meq/L (136-145)
[2018-02-20] MEDS ORDERED: Sod Chloride 0.9% Inj 1,000 ML IV.SIG SCH ×2 (11:15→11:30)
[2018-02-20 11:26] LABS: Baso % (Auto) 0.2 % (0.0-2.0); Eos # (Auto) 0.1 th/mm3 (0.0-0.4); Eos % (Auto) 0.5 % (0.0-4.0); Hematocrit 47.4 % (39.0-51.0); Hemoglobin 15.7 gm/dL (13.0-17.0); Lymph # (Auto) 0.8 th/mm3 (1.0-4.8); Lymph % (Auto) 5.4 % (9.0-44.0); Mean Corpuscular HGB Conc 33.2 % (32.0-36.0); Mean Corpuscular Hemoglobin 30.4 pg (27.0-34.0); Mean Corpuscular Volume 91.5 fL (80.0-100.0); Mean Platelet Volume 7.8 fL (7.0-11.0); Mono # (Auto) 0.7 th/mm3 (0.0-0.9); Mono % (Auto) 4.5 % (0.0-8.0); Neut % (Auto) 89.4 % (16.0-70.0); Platelet Count 243 th/mm3 (150-450); Red Blood Count 5.17 mil/mm3 (4.50-5.90); Red Cell Distribution Width 13.4 % (11.6-17.2); White Blood Count 15.6 th/mm3 (4.0-11.0)
[2018-02-20] MEDS ORDERED: Piperacil/Tazo 4.5 GM Premix 4.5 GM/100 ML BAG IV.SIG STA (11:30)
--- NOTE | 2018-02-20 11:54 | CT ---
EXAM DATE: 02/20/2018 11:51 AM EST AGE/SEX: 52 years / Male INDICATIONS: Cephalgia and diarrhea CLINICAL DATA: This is the patient's initial encounter. Patient reports that signs and symptoms have been present for 1 day and indicates a pain score of 5/10. MEDICAL/SURGICAL HISTORY: Hypertension. Appendectomy. Cholecystectomy. RADIATION DOSE: 37.78 CTDI (mGy) COMPARISON: No prior exams available for comparison. TECHNIQUE: CT of the head without contrast. Using automated exposure control and adjustment of the mA and/or kV according to patient size, radiation dose was kept as low as reasonably achievable to ob tain optimal diagnostic quality images. DICOM format image data is available electronically for revi ew and comparison. FINDINGS: Cerebrum: The ventricles are normal for age. No evidence of midline shift, mass lesion, hemorrhage or acute infarction. No extraaxial fluid collections are seen. Posterior Fossa: The cerebellum and brainstem are intact. The 4th ventricle is midline. The cerebe llopontine angle is unremarkable. Extracranial: The visualized portion of the orbits is intact. Skull: The calvaria is intact. No evidence of skull fracture. CONCLUSION: 1. Negative for acute process . Electronically signed by: David Mcmahon MD Board Certified Radiologist 02/20/2018 11:53 AM EST
--- NOTE | 2018-02-20 12:23 | CT ---
EXAM DATE: 02/20/2018 11:59 AM EST AGE/SEX: 52 years / Male INDICATIONS: Diarrhea CLINICAL DATA: This is the patient's initial encounter. Patient reports that signs and symptoms have been present for 1 day and indicates a pain score of 0/10. MEDICAL/SURGICAL HISTORY: Hypertension. Appendectomy. Cholecystectomy. ORAL CONTRAST: No oral contrast ingested. RADIATION DOSE: 14.91 CTDI (mGy) COMPARISON: [facility] [place], CT ABDOMEN & PELVIS W/O CONTRAST, 04/18/2017. . TECHNIQUE: Multiple contiguous axial images were obtained through the abdomen and pelvis following b olus infusion of 92 ml Omnipaque 350 (iohexol) nonionic water-soluble contrast as a single exam dos e. No oral contrast ingested. Using automated exposure control and adjustment of the mA and/or kV ac cording to patient size, radiation dose was kept as low as reasonably achievable to obtain optimal di agnostic quality images. DICOM format image data is available electronically for review and comparis on. FINDINGS: Abdomen CT: The liver, spleen, pancreas, adrenals are unremarkable. There is no evidence for any appreciable pat hological adenopathy, free fluid, or bowel obstruction. There are simple cysts in both kidneys the l argest measures 3.1 cm on the left. There is evidence for prior cholecystectomy. Pelvic CT: There is no evidence for mass, abscess formation, or any significant adenopathy within the pelvis. T he prostate gland measures 3.8 x 5.2 cm in AP and transverse diameters inhomogeneous in appearance and nonspecific. There is chronic spondylolysis bilateral L5 and mild anterolisthesis L5-S1. CONCLUSION: Chronic spondylolysis L5 bilaterally and there are simple cysts in the kidneys. Electronically signed by: Gabby Penaloza MD Board Certified Radiologist 02/20/2018 12:21 PM EST
--- NOTE | 2018-02-20 12:34 | XR ---
EXAM DATE: 02/20/2018 12:15 PM EST AGE/SEX: 52 years / Male INDICATIONS: Fever. Patient states he blacked out and has an increased heart rate. CLINICAL DATA: This is the patient's initial encounter. Patient reports that signs and symptoms have been present for 1 day and indicates a pain score of 0/10. MEDICAL/SURGICAL HISTORY: . Renal calculi. . Cholecystectomy. COMPARISON: [facility] [place], CHEST PA & LAT, 04/17/2017. . FINDINGS: A single AP view of the chest demonstrates the lungs to be symmetrically aerated without evidence of mass, infiltrate or effusion. The cardiomediastinal contours are unremarkable. Osseous structures a re intact. CONCLUSION: 1. No acute cardiopulmonary disease. Electronically signed by: Rodriguez Trevino MD Board Certified Radiologist 02/20/2018 12:32 PM EST
[2018-02-20] MEDS ORDERED: Bisacodyl 10 MG Supp RECTAL PRN (13:01)
[2018-02-20] MEDS ORDERED: Acetaminophen 325 MG Tablet PO PRN (13:01)
--- NOTE | 2018-02-20 14:15 | P.HPIM ---
History of Present Illness Service: Patient is a pleasant 52-year-old male with past medical history of cardiac ablation, and ago presenting with syncopal event x1. Patient reports that one week ago prior to presentation he started to notice palpitations which were distressing but he thought was secondary to anxiety that he has noticed worsened approximately 6 years ago after he was hospitalized at [facility] and found to have persistent tachycardia resulting in an ablation being performed. Patient reports that symptoms of palpitations continued but that one night prior to presentation on 02/19 patient reports that he woke up in the middle of the night feeling palpitations again and went to the restroom and had one loose bowel movement. Patient reports that he went back to bed shortly thereafter and woke up again shortly with sweats. Patient went to the bathroom again and noticed that his bowel movement was all liquid. The symptoms continued throughout the night and patient developed nausea subsequently and went to the bathroom but then claims he "went out." Patient woke up with a short time afterwards but is unsure of how long he was out but states that he felt a knot on his head likely from the fall. Patient presented to hospital where lab work was significant for elevated white blood cell count of 15. Patient reports that one month ago he was hospitalized at [facility] where he underwent an appendectomy and completed a short course of antibiotics for 10 days after discharge. Patient denied recent travel. Patient reports that a few days ago he had lasagna with family members and that someone else got sick during that period. Patient also reports that he took some medication from his sister L-thionine 2 days prior to presentation. This medication is generally used for blood pressure as a natural remedy. Patient denies taking any weight loss medications or other outside medications from other people. Patient denied drug use. Review of systems positive for sweats, nausea, diarrhea (no blood in close (, palpitations, and anxiety. Review of systems negative for fever, abdominal pain, emesis, headache, chest pain, shortness of breath, or vision changes. In emergency department patient was given IV fluid hydration. EKG showed sinus tachycardia without evidence of ST changes. Medicine was called for further evaluation. Allergies: No known drug allergy Social history: Patient denies smoking history, patient denied alcohol use, patient denied environmental exposures. Surgical history: Appendectomy (1 month ago). Gallbladder removal, kidney stone , heart ablation (6 years ago at [facility]) Family history: Noncontributory Medications: Metoprolol 12.5 mg twice daily. Dosing confirmed with [facility] pharmacy located at [address] Patient reports that he has not been taking metoprolol as prescribed. No other medications endorsed by patient. Mother: [phone]. Stacey Inpatient Certification Inpatient Certification: I certify that the inpatient services were ordered in accordance with Medicare regulations governing the order. This includes certification that hospital inpatient services are reasonable and necessary and in the case of services not specified as inpatient-only under 42 CFR 419.22(n), that they are appropriately provided as inpatient services in accordance to with the 2-midnight benchmark under 43 CFR 412.3(e) Estimated Total Length of Stay (Days): 3 Plans for Post Hospital Care: Home Review of Systems Review of Systems: all other systems reviewed are negative [facility] Medical History Medical History HTN (hypertension) (Acute) Tachycardia (Acute) Surgical History Surgical History History of appendectomy (Acute) History of cardiac radiofrequency ablation (Acute) History of cholecystectomy (Acute) Social History Social History Substance History: No History of Abuse Smoking Status: Never smoker How Often Do You Have a Drink Containing Alcohol: Never [facility] within the Last 8 Weeks: No Recent Out of Country Travel within the Last 8 Weeks: No Immunization History Tetanus Immunization: Unsure Medications and Allergies Allergies Allergy/AdvReac Type Severity Reaction Status Date / Time No Known Allergies Allergy Verified 02/20/18 11:52 Home Medications Medication Instructions Recorded Confirmed Type No Known Home Medications 02/20/18 02/20/18 History Active Medications: Active Medications Acetaminophen (Tylenol) 650 mg PO Q4H PRN PRN Reason: Temp > 100.4 Al Hydroxide/Mg Hydroxide (Milk Of Magnesia Liq) 30 ml PO Q12H PRN PRN Reason: Mild Constipation Bisacodyl (Dulcolax Supp) 10 mg RECTAL DAILY PRN PRN Reason: SEVERE CONSITIPATION Heparin Sodium (Porcine) (Heparin Inj) 5,000 units SQ Q8H DANK Sodium Chloride (Ns Inj) 1,000 mls @ 0 mls/hr IV.SIG .Q0M DANK Sodium Chloride (Ns Inj) 1,000 mls @ 100 mls/hr IV.CONT .Q10H DANK Lactulose (Lactulose Liq) 30 ml PO DAILY PRN PRN Reason: SEVERE CONSITIPATION Ondansetron HCl (Zofran Inj) 4 mg IV.PUSH Q6H PRN PRN Reason: NAUSEA OR VOMITING Senna/Docusate Sodium (Helen-Colace) 1 tab PO BID DANK Sennosides (Senokot) 17.2 mg PO Q12H PRN PRN Reason: Moderate Constipation Sodium Chloride (Ns Flush) 2 ml IV.FLUSH BID DANK Sodium Chloride (Ns Flush) 2 ml IV.FLUSH UNSCH PRN PRN Reason: FLUSH AFTER USING IV ACCESS Physical Exam Vital signs: Vital Signs 02/20/18 09:53 02/20/18 11:00 02/20/18 13:57 Temperature 98.7 F Pulse Rate 128 H 106 H Respiratory Rate 20 19 Blood Pressure 156/97 H 141/96 H Pulse Oximetry 98 96 Intake & Output 02/19/18 02/20/18 02/20/18 18:59 06:59 18:59 Intake Total 2099 Balance 2099 Weight 97.069 kg Intake: IV 2099 Zosyn 4.5 GM Premix 4.5 gm In 100 / 100 100 ml @ 200 mls/hr IV.SIG STAT STA Rx#:[id number] NS Inj 1,000 ML @ 1000 mls/hr 1999 / 1999 IV.SIG BOLUS DANK Rx#:[id number] General: No acute distress, conversational HEENT: No pale conjunctiva, EOMI Cardiovascular: Tachycardia, S1/S2 Respiratory: Clear to auscultation bilaterally without wheezing, rales, or rhonchi Gastroenterology: Soft, nontender, nondistended, no guarding or rebound appreciated. Postsurgical scar Extremity: No lower extremity edema noted, no calf tenderness Results Labs CBC & Chem 7: 02/20/18 11:12 02/20/18 10:00 Imaging Impressions Abdomen/Pelvis CT 02/20/18 09:56 CONCLUSION: Chronic spondylolysis L5 bilaterally and there are simple cysts in the kidneys. Head CT 02/20/18 09:56 CONCLUSION: 1. Negative for acute process . Chest X-Ray 02/20/18 11:30 CONCLUSION: 1. No acute cardiopulmonary disease. Caprini VTE Risk Assessment Caprini VTE Risk Assessment: No/Low Risk (score <= 1) Caprini Risk Assessment Model: Point Value = 1 Point Value = 2 Point Value = 3 Point Value = 5 Age 41-60 Minor surgery BMI > 25 kg/m2 Swollen legs Varicose veins or History of unexplained or recurrent spontaneous Oral contraceptives or hormone replacement Sepsis (< 1 month) Serious lung disease, including pneumonia (< 1 month) Abnormal pulmonary function Acute myocardial infarction Congestive heart failure (< 1 month) History of inflammatory bowel disease Medical patient at bed rest Age 61-74 Arthroscopic surgery Major open surgery (> 45 min) Laparoscopic surgery (> 45 min) Malignancy Confined to bed (> 72 hours) Immobilizing plaster cast Central venous access Age >= 75 History of VTE Family history of VTE Factor V Leiden Prothrombin [id number] Lupus anticoagulant Anticardiolipin antibodies Elevated serum homocysteine Heparin-induced thrombocytopenia Other congenital or acquired thrombophilia Stroke (< 1 month) Elective arthroplasty Hip, pelvis, or leg fracture Acute spinal cord injury (< 1 month) Prophylaxis Regimen: Total Risk Factor Score Risk Level Prophylaxis Regimen 0-1 Low Early ambulation 2 Moderate Order ONE of the following: *Sequential Compression Device (SCD) *Heparin 5000 units SQ BID 3-4 Higher Order ONE of the following medications: *Heparin 5000 units SQ TID *Enoxaparin/Lovenox 40 mg SQ daily (WT < 150 kg, CrCl > 30 mL/min) *Enoxaparin/Lovenox 30 mg SQ daily (WT < 150 kg, CrCl > 10-29 mL/min) *Enoxaparin/Lovenox 30 mg SQ BID (WT < 150 kg, CrCl > 30 mL/min) AND/OR *Sequential Compression Device (SCD) 5 or more Highest Order ONE of the following medications: *Heparin 5000 units SQ TID (Preferred with Epidurals) *Enoxaparin/Lovenox 40 mg SQ daily (WT < 150 kg, CrCl > 30 mL/min) *Enoxaparin/Lovenox 30 mg SQ daily (WT < 150 kg, CrCl > 10-29 mL/min) *Enoxaparin/Lovenox 30 mg SQ BID (WT < 150 kg, CrCl > 30 mL/min) AND *Sequential Compression Device (SCD) Assessment and Plan Plan Patient is a 52-year-old male with past medical history of cardiac ablation for a. fib and appendectomy presenting with syncopal event found to have elevated white blood cell count and diarrhea concerning for infectious etiology after recent hospitalization at outside hospital for appendicitis. Infectious disease: Sepsis, diarrhea CT abdomen and pelvis unremarkable for etiology at this time. Possible gastroenteritis C. difficile PCR is patient with recent antibiotic use within the last 30 days as well as hospitalization. Continue IV fluid hydration to prevent dehydration Empirically begin Flagyl 500 mg IV 3 times a day Zofran PRN if patient develops nausea Continue to follow-up blood cultures obtained Check TSH level to rule out hyperthyroidism as etiology for diarrhea. Patient was taking outside medication which could have adverse drug effects. Stool culture Cardiology: Atrial fibrillation status post ablation Continue to monitor on telemetry Resume metoprolol 12.5 mg twice daily If patient fails to improve with heart rate with medication as well as fluid resuscitation will consider cardiology evaluation. EKG reviewed. Appears to be sinus rhythm CODE STATUS: Full code DVT prophylaxis Disposition: Medical surgery unit Diet: Full liquids Plan of care discussed with patient as well as mother via telephone to medication. All questions answered.
[2018-02-20] MEDS: Heparin - SQ 10,000 UNITS/ML Vial SQ SCH ×2 (14:17→21:37)
[2018-02-20] MEDS: Sod Chloride 0.9% Inj 1,000 ML IV.CONT SCH ×2 (14:18→21:44)
[2018-02-20 14:35] LABS: Bilirubin,Urine Negative (Negative); Clarity,Urine Clear (Clear); Color,Urine Straw (Yellw/Straw); Glucose,Urine (UA) Negative (Negative); Leukocyte Esterase,Urine Negative (Negative); Nitrite,Urine Negative (Negative); Specific Gravity,Urine 1.033 (1.002-1.035)
[2018-02-20] MEDS: Metoprolol Tartrate 25 MG Tablet PO SCH ×2 (15:02→21:36)
--- NOTE | 2018-02-20 18:38 | ECG ---
Date Performed: 02/20/2018 Time Performed: 10:06:06 PTAGE: 52 years EKG: SINUS TACHYCARDIA INDETERMINATE AXIS POSSIBLE INFERIOR MYOCARDIAL INFARCTION ABNORMAL RHYTH M ECG PREVIOUS TRACING : 04/17/2017 20.09 Since the previous tracing, no significant change noted DOCTOR: Emanuel Swenson Interpretating Date/Time 02/20/2018 18:37:23
[2018-02-20] MEDS: Senna/Docusate Sodium 8.6/50 MG Tablet PO SCH (21:37)
[2018-02-21] MEDS: Heparin - SQ 10,000 UNITS/ML Vial SQ SCH ×2 (05:44→14:12)
[2018-02-21 05:45] VITALS: O2SAT 98
[2018-02-21 07:42] LABS: Baso # (Auto) 0.1 th/mm3 (0.0-0.2); Baso % (Auto) 1.2 % (0.0-2.0); Eos # (Auto) 0.2 th/mm3 (0.0-0.4); Eos % (Auto) 2.6 % (0.0-4.0); Hematocrit 44.7 % (39.0-51.0); Hemoglobin 14.7 gm/dL (13.0-17.0); Lymph # (Auto) 1.7 th/mm3 (1.0-4.8); Lymph % (Auto) 26.4 % (9.0-44.0); Mean Corpuscular HGB Conc 32.9 % (32.0-36.0); Mean Corpuscular Hemoglobin 30.2 pg (27.0-34.0); Mean Corpuscular Volume 91.6 fL (80.0-100.0); Mono # (Auto) 0.6 th/mm3 (0.0-0.9); Mono % (Auto) 9.4 % (0.0-8.0); Neut # (Auto) 3.8 th/mm3 (1.8-7.7); Neut % (Auto) 60.4 % (16.0-70.0); Platelet Count 211 th/mm3 (150-450); Red Blood Count 4.88 mil/mm3 (4.50-5.90); Red Cell Distribution Width 13.3 % (11.6-17.2); White Blood Count 6.3 th/mm3 (4.0-11.0)
[2018-02-21 07:52] LABS: INR 1.1 Ratio; Prothrombin Time 10.9 sec (9.8-11.6)
[2018-02-21 08:19] LABS: Calcium 8.6 mg/dL (8.5-10.1); Carbon Dioxide 21.9 meq/L (21.0-32.0); Potassium 3.7 meq/L (3.5-5.1)
[2018-02-21 08:50] VITALS: RESP 20
[2018-02-21] MEDS: Metoprolol Tartrate 25 MG Tablet PO SCH (09:39)
[2018-02-21] MEDS: Senna/Docusate Sodium 8.6/50 MG Tablet PO SCH (09:39)
[2018-02-21] MEDS: Sod Chloride 0.9% Inj 1,000 ML IV.CONT SCH ×2 (09:42)
[2018-02-21 12:31] VITALS: BP 146/90; PULSE 76; TEMP 97.2
--- NOTE | 2018-02-21 16:49 | P.PNIM ---
Subjective Interval history: Patient reports he is feeling much better today. He had one episode of watery diarrhea today. He is requesting to go home. C. difficile PCR came back positive. We discussed the usual course of treatment for C. difficile. Physical Exam Vital signs: Vital Signs 02/20/18 17:11 02/20/18 20:00 02/21/18 00:00 Temperature 97.0 F L 98.1 F 97.9 F Pulse Rate 99 H 91 H 75 Respiratory Rate 20 18 18 Blood Pressure 142/94 H 148/96 H 125/71 Pulse Oximetry 98 98 97 02/21/18 04:00 02/21/18 08:00 02/21/18 12:00 Temperature 97.6 F 97.6 F 97.2 F L Pulse Rate 90 80 76 Respiratory Rate 18 20 20 Blood Pressure 114/57 L 124/80 146/90 H Pulse Oximetry 98 98 98 Intake & Output 02/20/18 02/21/18 02/21/18 18:59 06:59 18:59 Intake Total 2200 / 2200 1100 / 1100 1000 / 1000 Output Total 350 / 350 Balance 2200 / 2200 750 / 750 1000 / 1000 Weight 97 kg 97.4 kg Intake: IV 2200 / 2200 1100 / 1100 1000 / 1000 NS Inj 1,000 ML @ 100 mls/hr IV 1000 / 1000 1000 / 1000 .CONT .Q10H DANK Rx#:[id number] Zosyn 4.5 GM Premix 4.5 gm In 100 / 100 100 ml @ 200 mls/hr IV.SIG STAT STA Rx#:[id number] NS Inj 1,000 ML @ 1000 mls/hr 1999 / 1999 IV.SIG BOLUS DANK Rx#:[id number] Flagyl 500 MG Inj 100 ML @ 100 100 / 100 100 / 100 mls/hr IV.SIG Q8H DANK Rx#: [id number] Output: Urine 350 / 350 Other: Date of Last Bowel Movement 02/20/18 02/20/18 Weight On Admission 97 kg Narrative: GENERAL: This is a well-nourished, well-developed patient, in no apparent distress. CARDIOVASCULAR: Normal rate and regular rhythm without murmurs, gallops, or rubs. RESPIRATORY: Good respiratory efforts. Breath sounds equal and clear to auscultation bilaterally. GASTROINTESTINAL: Abdomen soft, non-tender, non-distended. Normal active bowel sounds MUSCULOSKELETAL: Extremities without cyanosis, or edema. NEURO: Alert & Oriented x4 to person, place, time, situation. Moves all ext x4 PSYCH: Appropriate mood and affect. Results Labs CBC & Chem 7: 02/21/18 07:10 02/21/18 07:10 Labs: Microbiology 02/21/18 05:30 Stool Stool for WBCs - Final No WBC's seen 02/20/18 12:20 Blood - Peripheral Aerobic Blood Culture - Preliminary No growth in 1 day 02/20/18 12:20 Blood - Peripheral Anaerobic Blood Culture - Preliminary No growth in 1 day 02/20/18 12:05 Blood - Peripheral Aerobic Blood Culture - Preliminary No growth in 1 day 02/20/18 12:05 Blood - Peripheral Anaerobic Blood Culture - Preliminary No growth in 1 day 02/20/18 12:20 Nasal Wash Influenza Types A,B Antigen - Final Negative for FLU A and B antigen Infection due to influenza A or B cannot be ruled out since the antigen present in the sample may be below the detection limit of the test. Assessment and Plan Plan 52-year-old male with past medical history of cardiac ablation for a. fib and appendectomy presenting with syncopal event found to have elevated white blood cell count and diarrhea concerning for infectious etiology after recent hospitalization at outside hospital for appendicitis. The patient was found to be positive for C. difficile. His symptoms are mild to moderate. He improved the next day. He was discharged on oral vancomycin to complete the course of treatment. He is advised to follow-up outpatient with PCP. The patient is advised to resume his rate control medications that he normally takes at home. Discharge Planning: Discharge patient to home Condition on discharge: Improved Regular Diet as tolerated Ad Maddy activity Rx written: Vancomycin Follow-up with primary care physician
== END 2018-02-21 14:38 | disposition home or self-care (01) | DRG 872 ==
LOC: NEPE 09:43 → NEDA 13:07 → N05 16:28
PROVIDERS: ADMIT Family Medicine; ATTEND Family Medicine
CPT/HCPCS: 70450; 71010; 71045; 74177; 80048; 80053; 81001; 83605; 83690; 84443; 84484; 85025; 85610; 87040; 87205; 87275; 87276; 87324; 87449; 87493; 87804; 90761; 90765; 93005; 96361; 96365; 99285; J1644; J2543; J7030; Q9967